=== PATIENT | female | born 1990 | race African-American/Black ===

== ENCOUNTER 2020-09-30 07:22 | Emergency (ER) | payer SELFPAY ==
[~2020-09-30] VITALS: Ht 167.6 cm; Wt 70.0 kg
[2020-09-30] MEDS ORDERED: ZOLP5TAB2 MT (08:52)
[2020-09-30 09:10] VITALS: BP 133/87
== END 2020-09-30 09:10 | disposition home or self-care (01) ==
LOC: ER 07:22
DX: F41.9 Anxiety disorder, unspecified (principal); G47.00 Insomnia, unspecified; F32.9 Major depressive disorder, single episode, unspecified
CPT/HCPCS: 99283

== ENCOUNTER 2021-11-15 11:16 | Emergency (ER) | payer MEDICAID ==
[~2021-11-15] VITALS: Ht 167.6 cm; Wt 80.0 kg
[~2021-11-15 11:16] MED LIST: ZOLP5TAB2 MT
[2021-11-15 11:26] VITALS: BP 114/76
[2021-11-15 11:51] LABS: BASOPHILS % 0.8 % (0.0-2.0); EOSINOPHILS % 0.5 % (0.0-5.0); HEMATOCRIT. 38.9 % (36.0-48.0); HEMOGLOBIN. 13.1 g/dL (12.0-16.0); LYMPHOCYTES % 17.9 % (20.0-50.0); MEAN CORPUSCULAR HEMOGLOBIN 30.5 pg (28.0-32.0); MEAN CORPUSCULAR VOLUME 90.2 fL (81.0-99.0); MEAN PLATELET VOLUME 7.4 fl (7.4-10.4); MONOCYTES % 8.6 % (2.0-8.0); NEUTROPHILS % 72.2 % (40.0-76.0); PLATELET 342 x1000/uL (130-400); RED BLOOD CELL COUNT 4.31 mill/uL (4.2-5.4); RED CELL DISTRIBUTION WIDTH 12.9 % (11.6-14.6)
[2021-11-15 11:56] LABS: CHLORIDE 108 mEq/L (98-107)
[2021-11-15 12:06] LABS: B-HCG QUANTITATIVE 21 mIU/mL (<3)
[2021-11-15 14:01] LABS: CLARITY URINE CLEAR (CLEAR); COLOR URINE ORANGE (YELLOW); KETONES URINE NEGATIVE (NEGATIVE); LEUKOCYTE ESTERASE URINE TRACE (NEGATIVE); NITRITE URINE NEGATIVE (NEGATIVE); OCCULT BLOOD URINE 3+ (NEGATIVE); PH URINE 7.5 (4.5-8.0); PROTEIN URINE TRACE (NEGATIVE); SPECIFIC GRAVITY URINE 1.005 (1.005-1.030); UROBILINOGEN URINE 0.2 E.U./dL (0.2-1.0)
== END 2021-11-15 14:15 | disposition home or self-care (01) ==
LOC: ER 11:29
DX: O03.9 Complete or unspecified spontaneous abortion without complication (principal); F32.A Depression, unspecified; F41.9 Anxiety disorder, unspecified
CPT/HCPCS: 36415; 76830; 76856; 80053; 81003; 84702; 85025; 86850; 86900; 99284